=== PATIENT | male | born 2000 | race Caucasian/White ===

== ENCOUNTER 2020-11-17 01:39 | Emergency (ER) | payer BC, SELFPAY ==
[2020-11-17 01:46] VITALS: BP 120/82; PULSE 93; RESP 16; TEMP 37.1; O2SAT 94; BMI 33.2
--- NOTE | 2020-11-17 01:52 | XRR_ITS ---
PROCEDURE INFORMATION: Exam: XR Chest Exam date and time: 11/17/2020 1:52 AM Age: 20 years old Clinical indication: Chest pressure; Patient HX: Chest pain; Additional info: Cp TECHNIQUE: Imaging protocol: XR of the chest. Views: 1 view. COMPARISON: No relevant prior studies available. FINDINGS: Lungs: Poor inspiratory effort with some crowding of pulmonary markings and possible accentuation of the apparent heart size. Pleural spaces: Unremarkable. No pleural effusion. No pneumothorax. Heart/Mediastinum: Unremarkable. No cardiomegaly. Bones/joints: Unremarkable. XR/XR chest 1V portable [id number] IMPRESSION: No acute findings.
--- NOTE | 2020-11-17 01:52 | ECG_ITS ---
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 Measurements Intervals [place] Rate: 93 P: 37 AR: 159 QRS: 60 QRSD: 90 T: 77 QT: 340 QTc: 423 Interpretive Statements SINUS RHYTHM NONSPECIFIC T-WAVE ABNORMALITY No previous ECG available for comparison Electronically Signed On 11-17-2020 17:05:47 CDT by Anurag Lynn M.D. [email or web address] systemMedallion [email or web address] [email or web address]/[id number] f
--- NOTE | 2020-11-17 02:23 | W.ED.CHESTPA ---
HPI - Chest Pain General: Chief Complaint: Chest Pain Stated Complaint: chest pain Time Seen by Provider: 11/17/20 01:54 Source: patient Mode of arrival: ambulatory Limitations: no limitations History of Present Illness: HPI narrative: 20-year-old male states that he started having chest pain roughly an hour ago. States it is in the center of his chest and worse with movement of his arm and with palpation. He states that sharp in nature and has been constant. He rates it a 5 out of 10. Denies any shortness of breath. Denies any cough or fever. Denies any history of pain in the past. MD complaint: chest pain Associated symptoms: Deny abdominal pain, dyspnea, fever(s), nausea or vomiting Review of Systems Const: Denies: fever(s), chills, body aches or change in appetite Eyes: Denies: blurry vision or eye discomfort ENMT: Denies: throat pain or dental pain Card: Reports: chest pain Resp: Denies: dyspnea GI: Denies: abdominal pain, nausea, vomiting or diarrhea : Denies: dysuria Musc: Denies: neck pain or back pain Skin/Breast: Denies: rash Neuro: Denies: headache(s) Psych: Denies: depression Fredi/Lymph: Denies: easy bruising All/Imm: Denies: urticaria Physical Exam Const: COMMON NORMALS: no acute distress, patient oriented x3 and healthy appearing HENMT: COMMON NORMALS: normocephalic and atraumatic HEAD & SCALP: normocephalic and atraumatic Eye: COMMON NORMALS: Equal, round and reactive pupils present and EOMs intact bilaterally PUPIL: Yes Equal, round and reactive pupils present Neck/C-Spine: COMMON NORMALS: full ROM and supple Chest: COMMONS NORMALS: normal inspection of the chest OTHER: point tender to center of chest Resp: COMMON NORMALS: normal respiratory effort, No retractions, No use of accessory muscles and clear to auscultation bilaterally AUSCULTATION: clear to auscultation bilaterally Cardio: COMMON NORMALS: regular rate, regular rhythm and No murmurs present (Cardio) RATE: regular rate RHYTHM: regular rhythm GI: COMMON NORMALS: Normal to inspection, nondistended, normoactive bowel sounds present, Soft to palpation, non-tender and no masses PALPATION: Yes Soft to palpation Extremity: COMMON NORMALS: normal to inspection and full ROM Neuro: COMMON NORMALS: patient oriented x3, moves all extremities and no focal motor deficits Psych: COMMON NORMALS: mental status grossly normal, Normal thought process present and cooperative THOUGHT PROCESS: Normal thought process present Skin: COMMON NORMALS: no rashes or lesions noted and no wounds GENERAL SKIN EXAM: no rashes or lesions noted Course Vital Signs: Vital signs: Vital Signs Temperature 98.7 F 11/17/20 01:46 Pulse Rate 93 11/17/20 01:46 Respiratory Rate 16 11/17/20 01:46 Blood Pressure 120/82 11/17/20 01:46 Pulse Oximetry 94 11/17/20 01:46 MDM - Chest Pain MDM Narrative: Medical decision making narrative: Patient presents for chest pain that is likely muscular in nature. He is point tender on exam reproduces his pain. He has no signs of pulmonary embolism or coronary artery disease. He is stable for discharge and will follow up with his PCP in 2 to 4 days return if worsening. Imaging Data^: CXR: Attestation: I personally reviewed and interpreted this imaging study as follows: My impression: no acute abnormalities EKG Data^: EKG 1: Attestation: I personally reviewed and interpreted this EKG as follows: EKG interpretation date: 11/17/20 EKG interpretation time: 01:52 Interpretation: nsr hr [address] or t wave abnormalities qrs 90 qtc 390 Discharge Plan Discharge Patient Disposition: Home Clinical Impression: Chest pain Qualifiers: Chest pain type: unspecified Qualified Code(s): R07.9 - Chest pain, unspecified Condition: Stable Prescriptions: New Naprosyn 500 mg tablet 500 mg PO BID PRN (Reason: pain) Qty: 20 RF: 0 Discharge Orders: Discharge ED (Routine); Ordered 11/17/20 Ordered By: Harrison Mc Discharge Diet: Advance as tolerated Discharge Activity: Resume usual activity Patient Instructions: Chest Pain - Chest Wall Coding Level of Care Code ED Figure Refinisher And Repairer for Chg Nicohlas
[2020-11-17] MEDS: naproxen 500 mg Tablet PO (02:36)
[2020-11-17 02:41] VITALS: BP 118/80; PULSE 87; RESP 16; TEMP 37.1; O2SAT 96
== END 2020-11-17 02:43 | disposition home or self-care (01) ==
PROVIDERS: Emergency Provider Emergency Medicine
DX: R07.9 Chest pain, unspecified (principal)
CPT/HCPCS: 71045; 93005; 99283

== ENCOUNTER 2021-10-04 01:20 | Emergency (ER) | payer OTHER, BC, SELFPAY ==
[2021-10-04] VITALS (9 sets, daily range): BP systolic 121–162; BP diastolic 77–95; PULSE 83–100; RESP 12–19; TEMP 36.7; O2SAT 94–97; BMI 33.2
--- NOTE | 2021-10-04 01:23 | ECG_ITS ---
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 Measurements Intervals [place] Rate: 91 P: 37 SD: 172 QRS: 51 QRSD: 82 T: 60 QT: 335 QTc: 414 Interpretive Statements SINUS RHYTHM WITH FREQUENT VENTRICULAR PREMATURE COMPLEXES ABNORMAL RHYTHM ECG Compared to ECG 11/17/2020 01:52:10 Ventricular premature complex(es) now present T-wave abnormality no longer present Electronically Signed On 10-04-2021 16:51:03 CDT by Henrik Izquierdo M.D. [id number]
--- NOTE | 2021-10-04 01:23 | XRR_ITS ---
PROCEDURE INFORMATION: Exam: XR Chest Exam date and time: 10/04/2021 1:38 AM Age: 21 years old Clinical indication: Patient HX: C/O anterior central chest wall pain worsening upon palpation. ; Additional info: Cp TECHNIQUE: Imaging protocol: XR of the chest. Views: 1 view. COMPARISON: CR XR chest 1V portable [id number] 11/17/2020 1:55 AM FINDINGS: Lungs: No CHF/pulmonary edema. Poor inspiration somewhat limits evaluation, especially of the lung bases. Visible lungs appear essentially clear. Pleural spaces: No visible pneumothorax. No definite pleural fluid. Heart/Mediastinum: Heart size is within normal limits. Bones/joints: No significant acute finding. XR/XR chest 1V portable [id number] IMPRESSION: 1. No definite CHF or pneumonia. 2. Other findings discussed above.
--- NOTE | 2021-10-04 01:41 | ED_ITS ---
HPI - Chest Pain General: Chief Complaint: Chest Pain Stated Complaint: chest pains Time Seen by Provider: 10/04/21 01:35 Source: patient Mode of arrival: ambulatory Limitations: no limitations History of Present Illness: 21-year-old male states he started having a sharp chest pain 2 hours ago. He states the pain is in the right side of his chest. 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 He does remember specific injury but it is worse with palpation improved with rest. Denies any shortness of breath states pain is sharp rates it a 7 out of 10 currently denies any radiation diaphoresis or nausea Associated symptoms: Deny abdominal pain, dyspnea, fever(s), nausea or vomiting Review of Systems Const: Denies: fever(s), chills, body aches or change in appetite Eyes: Denies: blurry vision or eye discomfort ENMT: Denies: throat pain or dental pain Card: Reports: chest pain Resp: Denies: dyspnea GI: Denies: abdominal pain, nausea, vomiting or diarrhea : Denies: dysuria Musc: Denies: neck pain or back pain Skin/Breast: Denies: rash Neuro: Denies: headache(s) Psych: Denies: depression Fredi/Lymph: Denies: easy bruising All/Imm: Denies: urticaria PFS ED PFSH: Medical History (Updated 10/04/21 @ 04:26 by Harrison Mc MD) No pertinent past medical history Social History Substance/Drug Use: never Physical Exam Const: COMMON NORMALS: no acute distress, patient oriented x3 and healthy appearing HENMT: COMMON NORMALS: normocephalic and atraumatic HEAD & SCALP: normocephalic and atraumatic Eye: COMMON NORMALS: Equal, round and reactive pupils present and EOMs intact bilaterally PUPIL: Yes Equal, round and reactive pupils present Neck/C-Spine: COMMON NORMALS: full ROM and supple Chest: COMMONS NORMALS: normal inspection of the chest OTHER: point tender over right chest reproduces pain Resp: COMMON NORMALS: normal respiratory effort, No retractions, No use of accessory muscles and clear to auscultation bilaterally AUSCULTATION: clear to auscultation bilaterally Cardio: COMMON NORMALS: regular rate, regular rhythm and No murmurs present (Cardio) RATE: regular rate RHYTHM: regular rhythm GI: COMMON NORMALS: Normal to inspection, nondistended, normoactive bowel sounds present, Soft to palpation, non-tender and no masses PALPATION: Yes Soft to palpation Extremity: COMMON NORMALS: normal to inspection and full ROM Neuro: COMMON NORMALS: patient oriented x3, moves all extremities and no focal motor deficits Psych: COMMON NORMALS: mental status grossly normal, Normal thought process present and cooperative THOUGHT PROCESS: Normal thought process present Skin: COMMON NORMALS: no rashes or lesions noted and no wounds GENERAL SKIN EXAM: no rashes or lesions noted Course Vital Signs: Vital signs: Vital Signs Temperature 98.0 F 10/04/21 01:30 Pulse Rate 100 10/04/21 01:30 Respiratory Rate 16 10/04/21 01:54 Blood Pressure 121/84 10/04/21 01:30 Pulse Oximetry 95 10/04/21 01:54 MDM - Chest Pain Medical Decision Making Patient presents here with chest pain likely chest wall pain he is point tender in the center of his chest x-ray EKG troponins here are normal he has no signs of pulmonary embolism he is stable for discharge is to follow-up with PCP and return if worsening. Lab Data : 10/04/21 01:50 10/04/21 01:50 Radiology Impressions Chest X-Ray 10/04/21 01:23 IMPRESSION: 1. No definite CHF or pneumonia. 2. Other findings discussed above. Laboratory Results WBC 6.9 10^3/uL (4.0-10.0) 10/04/21 01:50 RBC 4.92 10^6/uL (4.1-5.3) 10/04/21 01:50 Hgb 15.3 g/dL (11.7-16.6) 10/04/21 01:50 Hct 41.3 % (42.0-52.0) L 10/04/21 01:50 MCV 83.9 fl (80-94) 10/04/21 01:50 MCH 31.1 pg (28.0-34.0) 10/04/21 01:50 MCHC 37.0 g/dL (30.0-36.0) H 10/04/21 01:50 RDW 11.9 % (12.1-15.1) L 10/04/21 01:50 Plt Count 249 10^3/cmm (130-400) 10/04/21 01:50 MPV 10.4 fL (7.4-10.4) 10/04/21 01:50 Neut % (Auto) 57.1 % 10/04/21 01:50 Lymph % (Auto) 33.3 % 10/04/21 01:50 Owsley % (Auto) 6.8 % 10/04/21 01:50 Eos % (Auto) 1.2 % 10/04/21 01:50 Baso % (Auto) 1.3 % 10/04/21 01:50 Neut # (Auto) 3.94 10^3/uL (1.8-7.7) 10/04/21 01:50 Lymph # (Auto) 2.3 10^3/uL (0.8-4.8) 10/04/21 01:50 Owsley # (Auto) 0.5 10^3/uL (0.2-0.9) 10/04/21 01:50 Eos # (Auto) 0.1 10^3/uL (0.0-0.8) 10/04/21 01:50 Baso # (Auto) 0.1 10^3/uL (0.0-0.1) 10/04/21 01:50 Nucleated RBC % (auto) 0 % 10/04/21 01:50 Nucleated RBCs # 0.0 /100WBC 10/04/21 01:50 Sodium 130 mmol/L (136-145) L 10/04/21 01:50 Potassium 4.3 mmol/L (3.5-5.1) 10/04/21 01:50 Chloride 94 mmol/L (98-107) L 10/04/21 01:50 Carbon Dioxide 19 mmol/L (22-29) L 10/04/21 01:50 Anion Gap 21.3 (5-19) H 10/04/21 01:50 BUN 14 mg/dL (6-20) 10/04/21 01:50 Creatinine 0.6 mg/dL (0.7-1.2) L 10/04/21 01:50 GFR Calculation 167.0 mL/min (90-130) H 10/04/21 01:50 Glucose 472 mg/dL (65-115) H 10/04/21 01:50 Calculated Osmolality 291 mOsm/kg (285-295) 10/04/21 01:50 Calcium 9.1 mg/dL (8.5-10.5) 10/04/21 01:50 Total Bilirubin 0.6 mg/dL (0.15-1.2) 10/04/21 01:50 AST 21 U/L (0-40) 10/04/21 01:50 ALT 36 U/L (0-41) 10/04/21 01:50 Alkaline Phosphatase 175 IU/L (40-130) H 10/04/21 01:50 Troponin T Baseline 7 ng/L (0-15) 10/04/21 01:50 Troponin T 120 Minute 8.35 ng/L (0-15) 10/04/21 03:52 Delta Troponin T 1.35 ABS# (0-10) 10/04/21 03:52 Total Protein 7.2 g/dL (6.6-8.7) 10/04/21 01:50 Albumin 3.8 g/dL (3.5-5.2) 10/04/21 01:50 Globulin 3.4 g/dL (1.3-4.6) 10/04/21 01:50 EKG Data EKG 1: I personally reviewed and interpreted this EKG as follows: EKG interpretation date: 10/04/21 EKG interpretation time: 01:43 Interpretation: Normal sinus rhythm heart rate [address] or T wave abnormalities PVC complexes QRS 82 QTC 384 EKG 2: I personally reviewed and interpreted this EKG as follows: EKG interpretation date: 10/04/21 EKG interpretation time: 03:57 Interpretation: Normal sinus rhythm heart rate [address] or T wave abnormalities QRS 86 QTC 396 Discharge Plan Discharge Patient Disposition: Home Clinical Impression: Chest pain Prescriptions: New Naprosyn 500 mg tablet 500 mg PO BID PRN (Reason: pain) Qty: 20 0RF No Action Naprosyn 500 mg tablet 500 mg PO BID PRN (Reason: pain) Qty: 20 0RF Discharge Orders: Discharge ED (Routine); Ordered 10/04/21 Ordered By: Harrison Mc Discharge Diet: Advance as tolerated Discharge Activity: Resume usual activity Patient Instructions: Chest Wall Pain (ED) Stand Alone Forms: Work/School Release Coding Level of Care Code ED Catering Barista for Chg Fwd Exam Comprehensive
[2021-10-04] MEDS: morphine 4 mg/mL SDV 1 mL IVP (01:54)
[2021-10-04] MEDS: ondansetron 2 mg/ML SDV 2 mL 4 MG IVP (01:54)
[2021-10-04 01:59] LABS: Basophils # 0.1 10^3/uL (0.0-0.1); Basophils % 1.3 %; Eosinophils # 0.1 10^3/uL (0.0-0.8); Eosinophils % 1.2 %; Hematocrit 41.3 % (42.0-52.0); Hemoglobin 15.3 g/dL (11.7-16.6); Lymphocytes # 2.3 10^3/uL (0.8-4.8); Lymphocytes % 33.3 %; Mean Corpuscular Hemoglobin 31.1 pg (28.0-34.0); Mean Corpuscular Volume 83.9 fl (80-94); Mean Platelet Volume 10.4 fL (7.4-10.4); Monocytes # 0.5 10^3/uL (0.2-0.9); Monocytes % 6.8 %; Neutrophils # 3.94 10^3/uL (1.8-7.7); Neutrophils % 57.1 %; Nucleated Red Blood Cells % 0 %; Platelet Count 249 10^3/cmm (130-400); Red Blood Count 4.92 10^6/uL (4.1-5.3); Red Cell Distribution Width 11.9 % (12.1-15.1); White Blood Count 6.9 10^3/uL (4.0-10.0)
[2021-10-04 02:23] LABS: Albumin Level 3.8 g/dL (3.5-5.2); Alkaline Phosphatase 175 IU/L (40-130); Blood Urea Nitrogen 14 mg/dL (6-20); Calcium 9.1 mg/dL (8.5-10.5); Carbon Dioxide 19 mmol/L (22-29); Globulin 3.4 g/dL (1.3-4.6); Glucose 472 mg/dL (65-115); Osmolality Calculated 291 mOsm/kg (285-295); Sodium 130 mmol/L (136-145); Total Bilirubin 0.6 mg/dL (0.15-1.2); Total Protein 7.2 g/dL (6.6-8.7)
[2021-10-04 02:24] LABS: Anion Gap 21.3 (5-19); Potassium 4.3 mmol/L (3.5-5.1); Troponin(5th) Baseline 7 ng/L (0-15)
[2021-10-04 02:25] LABS: Chloride 94 mmol/L (98-107)
[2021-10-04] MEDS: sodium chloride 0.9% 1,000 ML 999 ML IV (02:58)
[2021-10-04 03:08] LABS: Alanine Aminotransferase 36 U/L (0-41); Aspartate Amino Transferase 21 U/L (0-40)
--- NOTE | 2021-10-04 03:39 | ECG_ITS ---
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 Measurements Intervals [place] Rate: 95 P: 39 [place]: 156 QRS: 49 QRSD: 86 T: 35 QT: 344 QTc: 433 Interpretive Statements SINUS RHYTHM WITH OCCASIONAL VENTRICULAR PREMATURE COMPLEXES NONSPECIFIC T-WAVE ABNORMALITY Compared to ECG 10/04/2021 01:43:54 T-wave abnormality now present Electronically Signed On 10-04-2021 17:02:58 CDT by Henrik Izquierdo M.D. [id number]
[2021-10-04 04:17] LABS: Troponin 5 2HR 8.35 ng/L (0-15)
[2021-10-04 04:18] LABS: Troponin 5 2HR Delta 1.35 ABS# (0-10)
== END 2021-10-04 04:37 | disposition home or self-care (01) ==
PROVIDERS: Emergency Provider Emergency Medicine
DX: R07.9 Chest pain, unspecified (principal)
CPT/HCPCS: 71045; 80053; 84484; 85025; 93005; 96361; 96374; 96375; 99284; J2270; J2405; J7030